=== PATIENT | female | born 1955 | race Caucasian/White ===

== ENCOUNTER → 2020-12-12 16:15 | Outpatient (CLI) | payer MEDICARE, SELFPAY ==
--- NOTE | ~2020-12-12 | MM_ITS ---
EXAMINATION: MM screening destini BI w eyad HISTORY: Screening TECHNIQUE: Craniocaudal and mediolateral oblique 3-D tomosynthesis images were obtained and synthetic 2-D images were generated. CAD analysis was submitted and interpreted. COMPARISON: No prior mammogram is available for comparison at this institution. BREAST PARENCHYMAL COMPOSITION: There are scattered areas of fibroglandular density. FINDINGS: There is no evidence of suspicious mass, calcification, or architectural distortion to sugg est malignancy in either breast. There has been no suspicious interval change. IMPRESSION: 1. No mammographic evidence of malignancy. 2. Recommend routine screening mammography in one year. BI-RADS Category 1: Negative Reviewed, dictated and finalized at location A.
== END ==
PROVIDERS: PCP Physician Assistant; Visit Provider Physician Assistant
DX: Z12.31 Encounter for screening mammogram for malignant neoplasm of breast (principal)
CPT/HCPCS: 77063; 77067

== ENCOUNTER 2025-02-10 12:45 | Emergency (ER) | payer MEDICARE, SELFPAY ==
--- NOTE | ~2025-02-10 | XR_ITS ---
Examination: XR knee RT 3V Clinical History: pain posterior and lateral aspect, INSTABILITY Comparison: None Technique: 3 views right knee Findings/impression: 1. No fracture, dislocation, or effusion right knee. Reviewed, dictated and finalized at location R. K [employer]
[2025-02-10 12:53] VITALS: BP 148/83; PULSE 86; RESP 16; TEMP 37.1; O2SAT 97
--- NOTE | 2025-02-10 13:22 | ED.LOWEXIN ---
HPI - Extremity Injury (Lower) General Chief Complaint: Extremity Injury, Lower Stated Complaint: R knee crack/pain Time Seen by Provider: 02/10/25 13:22 Source: patient Mode of arrival: ambulatory Limitations: no limitations History of Present Illness HPI Narrative: 69 yo F presents with c/o R knee pain for 3 to 4 days. Stepped down from 1 step and felt popping pain to R knee followed by warm sensation. Could not bare weight on R knee for several days. Used walker at home. Today better but limping. All systems reviewed and negative except as noted above. Related Data Home Medications ?Medication ?Instructions ?Recorded ?Confirmed ?Last Taken ?Type No Home Medications 02/10/25 02/10/25 Unknown History Allergies Allergy/AdvReac Type Severity Reaction Status Date / Time No Known Allergies Allergy Mild Verified 02/10/25 12:55 PMFSH Comments At time of signature, agree with nursing past medical, surgical, social and family history. There is no relevant family history pertinent to the presenting complaint. Exam Narrative: GENERAL: This is a well-nourished, well-developed patient, in no apparent distress. HEAD: normocephalic, atraumatic. EYES: PERRL. Sclera clear/white. Vision is grossly intact. EARS: External ears normal NOSE: External nose normal NECK: Neck supple, non-tender without lymphadenopathy, masses or thyromegaly. CARDIOVASCULAR: Regular rate and rhythm without murmurs, gallops, or rubs. RESPIRATORY: Clear to auscultation. Breath sounds equal bilaterally. No wheezes, rales, or rhonchi. SKIN: warm, Dry, intact with no suspicious lesions or rash, good texture and turgor. NEURO: awake, alert, and oriented to person, place and time. There were no obvious focal neurologic abnormalities. EXTREMITIES: tender to R lateral and posterior aspect on palpation of R knee. no significant swelling noted. Neg anterior and posterior drawer testing. Course Course Level of Care: Express Care Visit Vital Signs Vital signs: Vital Signs Temperature 37.1 C 02/10/25 12:53 Pulse Rate 86 02/10/25 12:53 Respiratory Rate 16 02/10/25 12:53 Blood Pressure 148/83 H 02/10/25 12:53 Pulse Oximetry 97 02/10/25 12:53 Oxygen Delivery Room Air 02/10/25 12:53 Temperature 37.1 C 02/10/25 12:53 Pulse Rate 86 02/10/25 12:53 Respiratory Rate 16 02/10/25 12:53 Blood Pressure 148/83 H 02/10/25 12:53 Pulse Oximetry 97 02/10/25 12:53 Oxygen Delivery Room Air 02/10/25 12:53 Reviewed MDM MDM Narrative Medical decision making narrative: normal x-ray of right knee. Discussed results with patient. Patient placed in Chris wrap. Recommend follow-up with primary care physician if not improving. Differential Diagnosis Differential Diagnosis: Differential diagnostic considerations for lower extremity injury include ankle sprain/strain, acute internal derangement of knee, fracture of femur, fracture of hip, puncture wound of foot, fracture of toe, fracture of ankle, tendon rupture (achilles/patellar/quadriceps). Discharge Plan Discharge Clinical Impression: Strain of right knee Patient Disposition: Home Condition: Stable Instructions: Knee Pain (ED) Additional Instructions: the x-ray of your right knee was normal. Take ibuprofen or Tylenol every 6-8 hours as needed for pain. Elevate when at rest. Avoid strenuous activities. See your doctor if not improving. Patient Language: Vietnamese Prescriptions: No Action No Home Medications Follow-up/Referrals: Eliana,MASON Dixon [Primary Care Provider, Unknown] Time of Disposition: 14:01
== END 2025-02-10 14:06 | disposition home or self-care (01) ==
PROVIDERS: Emergency Provider Nurse Practitioner Family; PCP Physician Assistant
DX: S86.911A Strain of unspecified muscle(s) and tendon(s) at lower leg level, right leg, initial encounter (principal); X58.XXXA Exposure to other specified factors, initial encounter
CPT/HCPCS: 73562; 99203; G0463